=== PATIENT | male | born 1945 | race Caucasian/White ===

== ENCOUNTER 2021-02-04 12:53 | Emergency (ER) | payer MEDICARE, OTHER ==
[2021-02-04] MEDS ORDERED: Sodium Chloride 0.9% 10 ML Syringe FLUSH PRN (13:07)
--- NOTE | 2021-02-04 13:09 | EDM.PDOC ---
ED HPI GENERAL MEDICAL PROBLEM - General Chief Complaint: Cardiovascular Problem Stated Complaint: SHORT OF BREATH Time Seen by Provider: 02/04/21 12:55 Source of Information: Reports: Patient History Limitations: Reports: No Limitations - History of Present Illness INITIAL COMMENTS - FREE TEXT/NARRATIVE: 75 YO WM PRESENTS TO ER WITH COMPLAINTS OF SHORTNESS OF BREATH WHICH HAS BECOME MORE PROGRESSIVE OVER THE LAST 7-10 DAYS. PT REPORTS HE HAS HAD UPPER RESPIRATORY COUGH AND CONGESTION WITHOUT FEVER OVER THIS PERIOD OF TIME. PT DENIES LOWER EXTREMITY SWELLING, NO ORTHOPNEA BUT REPORTS DYSPNEA ON EXERTION. PT REPORTS HE WAS SEEN BY CARDIOLOGY AND HAD AN ABNORMAL STRESS TEST AND 2 DAYS AGO HAD A CARDIAC CATHETERIZATION AND STENT PLACED AT [facility]. PT REPORTS HE HAD A COVID TEST ON 01/30/2021 WHICH WAS NEGATIVE. PT DENIES CHEST PAIN, VOMITING, DIZZINESS OR DIAPHORESIS. PT DENIES FEVER/CHILLS. PT WITH PMH OF CAD, HTN, AND HYPERLIPIDEMIA. Duration: Week(s): (2), Getting Worse Location: Reports: Generalized Severity: Moderate Improves with: Reports: Rest Worsens with: Reports: Breathing, Movement Associated Symptoms: Reports: No Other Symptoms, Cough, Loss of Appetite, Nausea/Vomiting, Shortness of Breath. Denies: Chest Pain, Diaphoresis, Fever/Chills - Related Data Allergies Allergy/AdvReac Type Severity Reaction Status Date / Time No Known Allergies Allergy Verified 02/04/21 13:17 Home Meds: Home Meds Aspirin [Aspirin EC] 81 mg PO DAILY 02/04/21 [History] Azithromycin [Zithromax] 250 mg PO DAILY #3 tablet 02/04/21 [Rx] Clopidogrel [Plavix] 75 mg PO DAILY 02/04/21 [History] Fluticasone Propionate [Flonase] 1 spray NASBOTH BID 02/04/21 [History] Isosorbide Mononitrate [Imdur] 30 mg PO DAILY 02/04/21 [History] Nitroglycerin [Nitrostat] 0.4 mg SL ASDIRECTED 02/04/21 [History] Tamsulosin [Tamsulosin 24 Hr] 0.4 mg PO DAILY 02/04/21 [History] atorvaSTATin Calcium [Atorvastatin Calcium] 80 mg PO DAILY 02/04/21 [History] lisinopriL [Lisinopril] 20 mg PO DAILY 02/04/21 [History] predniSONE [Prednisone] 20 mg PO DAILY #9 tablet 02/04/21 [Rx] ED ROS GENERAL - Review of Systems Review Of Systems: See Below Constitutional: Reports: No Symptoms HEENT: Reports: No Symptoms Respiratory: Reports: Shortness of Breath Cardiovascular: Reports: Dyspnea on Exertion. Denies: Chest Pain, Blood Pressure Problem, Edema, Lightheadedness, Orthopnea Endocrine: Reports: No Symptoms GI/Abdominal: Reports: Nausea : Reports: No Symptoms Musculoskeletal: Reports: No Symptoms Skin: Reports: No Symptoms Neurological: Reports: No Symptoms Psychiatric: Reports: No Symptoms Hematologic/Lymphatic: Reports: No Symptoms Immunologic: Reports: No Symptoms ED EXAM, GENERAL - Physical Exam Exam: See Below Exam Limited By: No Limitations General Appearance: Alert, WD/WN, No Apparent Distress Nose: Clear Rhinorrhea Throat/Mouth: Normal Inspection, Normal Lips, Normal Teeth, Normal Gums, Normal Oropharynx, Normal Voice, No Airway Compromise Head: Atraumatic, Normocephalic Neck: Normal Inspection, Supple, Non-Tender, Full Range of Motion Respiratory/Chest: No Respiratory Distress, No Accessory Muscle Use, Chest Non- Tender, Rhonchi Cardiovascular: Normal Peripheral Pulses, Regular Rate, Rhythm, No Edema, No Gallop, No JVD, No Murmur, No Rub GI/Abdominal: Normal Bowel Sounds, Soft, Non-Tender, No Organomegaly, No Distention, No Abnormal Bruit, No Mass Back Exam: Normal Inspection, Full Range of Motion, NT Extremities: Normal Inspection, Normal Range of Motion, Non-Tender, Normal Capillary Refill, No Pedal Edema Neurological: Alert, Oriented, CN II-XII Intact, Normal Cognition, Normal Gait, Normal Reflexes, No Motor/Sensory Deficits Psychiatric: Normal Affect, Normal Mood Skin Exam: Warm, Dry, Intact, Normal Color, No Rash Lymphatic: No Adenopathy #1 Interpretation EKG Date: 02/04/21 Time: 13:01 Rhythm: NSR Rate (Beats/Min): 60 Reynolds: Normal P-Wave: Present QRS: RBBB ST-T: Normal QT: Normal Comparison: No Change (02/02/2021) Course - Vital Signs Last Recorded V/S: Last Vital Signs Temp 97.8 F 02/04/21 13:12 Pulse 56 L 02/04/21 13:45 Resp 21 H 02/04/21 13:45 BP 93/56 L 02/04/21 13:45 Pulse Ox 96 02/04/21 13:45 - Orders/Labs/Meds Orders: Active Orders 24 hr Category Date Time Status Cardiac Monitoring [RC] . DIRECTED Care 02/04/21 13:09 Ordered Peripheral IV Care [RC] . DIRECTED Care 02/04/21 13:08 Ordered RT Aerosol Therapy [RC] ASDIRECTED Care 02/04/21 14:08 Ordered Sodium Chloride 0.9% @ 999 MLS/HR (1000ml) Med 02/04/21 13:34 Ordered Sodium Chloride 0.9% [Normal Saline] 1,000 ml IV .BOLUS Sodium Chloride 0.9% [Saline Flush] Med 02/04/21 13:07 Ordered 10 ml FLUSH Q8HR PRN Peripheral IV Insertion Adult [OM.PC] Routine Oth 02/04/21 13:07 Ordered EKG 12 Lead [EK] Stat Ther 02/04/21 13:07 Ordered Medication Orders Sodium Chloride (Normal Saline) 1,000 mls @ 999 mls/hr IV .BOLUS ONE Stop: 02/04/21 14:34 Last Admin: 02/04/21 13:35 Dose: 999 mls/hr Documented by: LESVIA Sodium Chloride (Sodium Chloride 0.9% 10 Ml Syringe) 10 ml FLUSH Q8HR PRN PRN Reason: keep vein open Labs: Laboratory Tests 02/04/21 02/04/21 02/04/21 Range/Units 13:05 13:05 13:05 WBC 7.92 (5.00-10.00) 10^3/uL RBC 4.46 L (4.50-6.00) 10^6/uL Hgb 13.3 (13.0-17.0) g/dL Hct 40.3 (40.0-52.0) % MCV 90.4 (82.0-92.0) fL MCH 29.8 (27.0-31.0) pg MCHC 33.0 (32.0-36.0) g/dL RDW 13.1 (11.5-14.5) % Plt Count 200 (150-400) 10^3/uL MPV 10.3 (7.4-10.4) fL Immature Gran % (Auto) 0.5 (0.0-5.0) % Neut % (Auto) 64.1 (50.0-70.0) % Lymph % (Auto) 18.7 L (20.0-40.0) % Perkins % (Auto) 15.2 H (2.0-8.0) % Eos % (Auto) 1.0 (1.0-3.0) % Baso % (Auto) 0.5 (0.0-1.0) % Neut # (Auto) 5.08 (2.50-7.00) 10^3/uL Lymph # (Auto) 1.48 (1.00-4.00) 10^3/uL Perkins # (Auto) 1.20 H (0.10-0.80) 10^3/uL Eos # (Auto) 0.08 L (0.10-0.30) 10^3/uL Baso # (Auto) 0.04 (0.00-0.10) 10^3/uL Immature Gran # (Auto) 0.04 (0.00-0.50) 10^3/uL D-Dimer, Quantitative 139 (<400) ng/mL Sodium 138 (136-145) mmol/L Potassium 4.0 (3.5-5.1) mmol/L Chloride 102 (98-107) mmol/L Carbon Dioxide 25.1 (21.0-32.0) mmol/L Anion Gap 14.9 (5-15) mmol/L BUN 25 H (7-18) mg/dL Creatinine 1.11 (0.51-1.17) mg/dL Est Cr Clr Drug Dosing 54.77 mL/min Estimated GFR (MDRD) > 60 mL/min Glucose 120 (70-140) mg/dL Lactic Acid (0.4-2.0) mmol/L Calcium 8.1 L (8.7-10.3) mg/dL Total Bilirubin 0.5 (0.2-1.0) mg/dL AST 20 (15-37) U/L ALT 44 (14-63) U/L Alkaline Phosphatase 84 (46-116) U/L Creatine Kinase 72 (26-276) U/L CK-MB (CK-2) 1.07 (0.00-3.60) ng/mL Troponin I High Sens 34.400 (0-76.000) pg/mL B-Natriuretic Peptide 33 (0-100) pg/mL Total Protein 6.4 (6.4-8.2) g/dL Albumin 3.49 (3.40-5.00) g/dL 02/04/21 Range/Units 13:05 WBC (5.00-10.00) 10^3/uL RBC (4.50-6.00) 10^6/uL Hgb (13.0-17.0) g/dL Hct (40.0-52.0) % MCV (82.0-92.0) fL MCH (27.0-31.0) pg MCHC (32.0-36.0) g/dL RDW (11.5-14.5) % Plt Count (150-400) 10^3/uL MPV (7.4-10.4) fL Immature Gran % (Auto) (0.0-5.0) % Neut % (Auto) (50.0-70.0) % Lymph % (Auto) (20.0-40.0) % Perkins % (Auto) (2.0-8.0) % Eos % (Auto) (1.0-3.0) % Baso % (Auto) (0.0-1.0) % Neut # (Auto) (2.50-7.00) 10^3/uL Lymph # (Auto) (1.00-4.00) 10^3/uL Perkins # (Auto) (0.10-0.80) 10^3/uL Eos # (Auto) (0.10-0.30) 10^3/uL Baso # (Auto) (0.00-0.10) 10^3/uL Immature Gran # (Auto) (0.00-0.50) 10^3/uL D-Dimer, Quantitative (<400) ng/mL Sodium (136-145) mmol/L Potassium (3.5-5.1) mmol/L Chloride (98-107) mmol/L Carbon Dioxide (21.0-32.0) mmol/L Anion Gap (5-15) mmol/L BUN (7-18) mg/dL Creatinine (0.51-1.17) mg/dL Est Cr Clr Drug Dosing mL/min Estimated GFR (MDRD) mL/min Glucose (70-140) mg/dL Lactic Acid 1.3 (0.4-2.0) mmol/L Calcium (8.7-10.3) mg/dL Total Bilirubin (0.2-1.0) mg/dL AST (15-37) U/L ALT (14-63) U/L Alkaline Phosphatase (46-116) U/L Creatine Kinase (26-276) U/L CK-MB (CK-2) (0.00-3.60) ng/mL Troponin I High Sens (0-76.000) pg/mL B-Natriuretic Peptide (0-100) pg/mL Total Protein (6.4-8.2) g/dL Albumin (3.40-5.00) g/dL Meds: Medications Generic Name Dose Route Start Last Admin Trade Name Freq PRN Reason Stop Dose Admin Sodium Chloride 1,000 mls @ 999 mls/hr 02/04/21 13:34 02/04/21 13:35 Normal Saline IV 02/04/21 14:34 999 mls/hr .BOLUS ONE Administration Sodium Chloride 10 ml 02/04/21 13:07 Sodium Chloride 0.9% 10 Ml Syringe FLUSH Q8HR PRN keep vein open Discontinued Medications Generic Name Dose Route Start Last Admin Trade Name Freq PRN Reason Stop Dose Admin Albuterol/Ipratropium 3 ml 02/04/21 14:08 Albuterol/Ipratropium 3.0-0.5 Mg/3 Ml Neb Soln NEB 02/04/21 14:09 ONETIME ONE - Radiology Interpretation Free Text/Narrative:: CXR-NAD Departure - Departure Time of Disposition: 14:22 Disposition: Home, Self-Care 01 Condition: Good Clinical Impression: Acute bronchitis Qualifiers: Bronchitis organism: unspecified organism Qualified Code(s): J20.9 - Acute bronchitis, unspecified Prescriptions: predniSONE [Prednisone] 20 mg PO DAILY #9 tablet Azithromycin [Zithromax] 250 mg PO DAILY #3 tablet Instructions: Acute Bronchitis, Adult, [id number] Referrals: Rebeca Chan, [employer]OR [Primary Care Provider] - Forms: ED Department Discharge Additional Instructions: 1. DISCHARGE HOME- DISCUSSED WITH JACEY SOLIZ- AGREED WITH DISCHARGE AND WILL FOLLOW UP WITH PATIENT EARLY NEXT WEEK FOR RE-EVALUATION 2. Z-COMPA 3. PREDNISONE 60MG DAILY X 5 DAYS 4. ALBUTEROL HFA 2 PUFFS EVERY 4 HOURS AND NEEDED FOR COUGH/SHORTNESS OF B REATH 5. MUCINEX TO HELP WITH CONGESTION DIRECTED 6. AFRIN NS 2 SPRAYS EACH NOSTRIL TWICE/DAY X 3 DAYS ONLY 7. RETURN TO ER FOR WORSENING SYMPTOMS Sepsis Event Note (ED) - Focused Exam Vital Signs: Vital Signs Temp Pulse Resp BP Pulse Ox 02/04/21 13:45 56 L 21 H 93/56 L 96 02/04/21 13:30 58 L 22 H 99/59 L 94 L 02/04/21 13:15 61 22 H 105/48 L 94 L 02/04/21 13:12 97.8 F 60 20 112/58 L 92 L - My Orders Last 24 Hours: My Active Orders 02/04/21 13:07 Sodium Chloride 0.9% [Saline Flush] 10 ml FLUSH Q8HR PRN Peripheral IV Insertion Adult [OM.PC] Routine EKG 12 Lead [EK] Stat 02/04/21 13:08 Peripheral IV Care [RC] . DIRECTED 02/04/21 13:09 Cardiac Monitoring [RC] . DIRECTED 02/04/21 13:34 Sodium Chloride 0.9% @ 999 MLS/HR (1000ml) Sodium Chloride 0.9% [Normal Saline] 1,000 ml IV .BOLUS 02/04/21 14:08 RT Aerosol Therapy [RC] ASDIRECTED - Assessment/Plan Last 24 Hours: My Active Orders 02/04/21 13:07 Sodium Chloride 0.9% [Saline Flush] 10 ml FLUSH Q8HR PRN Peripheral IV Insertion Adult [OM.PC] Routine EKG 12 Lead [EK] Stat 02/04/21 13:08 Peripheral IV Care [RC] . DIRECTED 02/04/21 13:09 Cardiac Monitoring [RC] . DIRECTED 02/04/21 13:34 Sodium Chloride 0.9% @ 999 MLS/HR (1000ml) Sodium Chloride 0.9% [Normal Saline] 1,000 ml IV .BOLUS 02/04/21 14:08 RT Aerosol Therapy [RC] ASDIRECTED Assessment:: 1. ACUTE BRONCHITIS Plan: 1. DISCHARGE HOME- DISCUSSED WITH JACEY SOLIZ- AGREED WITH DISCHARGE AND WILL FOLLOW UP WITH PATIENT EARLY NEXT WEEK FOR RE-EVALUATION 2. Z-COMPA 3. PREDNISONE 60MG DAILY X 5 DAYS 4. ALBUTEROL HFA 2 PUFFS EVERY 4 HOURS AND NEEDED FOR COUGH/SHORTNESS OF BREATH 5. MUCINEX TO HELP WITH CONGESTION DIRECTED 6. AFRIN NS 2 SPRAYS EACH NOSTRIL TWICE/DAY X 3 DAYS ONLY 7. RETURN TO ER FOR WORSENING SYMPTOMS
[2021-02-04] MEDS ORDERED: Sodium Chloride 0.9% 1,000 ML IV ONE (13:34)
--- NOTE | 2021-02-04 13:43 | CR ---
[id number] RAD/RAD Chest PA And Lateral EXAM: RAD Chest PA And Lateral INDICATION: SHORTNESS OF BREATH. COMPARISON: CT from 2015. DISCUSSION/IMPRESSION: Cardiomediastinal silhouette is normal in size and contour. Scarring in the left lung base. No pneumonia. No pleural effusion or pneumothorax. Chronic healed right-sided rib fractures. Kirill Thompson MD 02/04/21 [id number] Thank you for allowing us to participate in the care of your patient.
[2021-02-04 13:44] LABS: ANION GAP 14.9 mmol/L (5-15); CHLORIDE,CL 102 mmol/L (98-107); SODIUM,NA 138 mmol/L (136-145)
[2021-02-04] MEDS ORDERED: Albuterol/Ipratropium 3.0-0.5 MG/3 ML Neb Soln NEB ONE (14:08)
[2021-02-04] MEDS ORDERED: Albuterol 8 GM Inhaler INH PRN (14:18)
[2021-02-04] MEDS ORDERED: predniSONE 20 MG Tab PO ONE (14:18)
[2021-02-04] MEDS ORDERED: Azithromycin 250 MG Tab PO ONE (14:18)
[2021-02-04] MEDS ORDERED: Albuterol 8 GM Inhaler INH ONE (14:53)
== END 2021-02-04 15:05 | disposition home or self-care (01) ==
LOC: KA.ED 12:53
DX: J20.9 Acute bronchitis, unspecified (principal); Z79.82 Long term (current) use of aspirin; Z79.02 Long term (current) use of antithrombotics/antiplatelets
CPT/HCPCS: 36415; 71046; 80053; 82550; 82553; 83605; 83880; 84484; 85025; 85379; 93005; 94640; 99283; 99285-25; A9270-GY; J7030; J7512; J7620-GY

== ENCOUNTER 2023-03-27 19:56 | Inpatient (IN) | payer MEDICARE, OTHER ==
[2023-03-27] MEDS ORDERED: Sodium Chloride 0.9% 10 ML Syringe FLUSH PRN (20:11)
[2023-03-27] MEDS ORDERED: Sodium Chloride 0.9% 500 ML IV SCH (20:15)
[2023-03-27 20:31] LABS: BASOPHILS ABSOLUTE AUTO 0.03 10^3/uL (0.00-0.10); BASOPHILS PERCENT AUTO 0.2 % (0.0-1.0); EOSINOPHILS ABSOLUTE AUTO 0.04 10^3/uL (0.10-0.30); EOSINOPHILS PERCENT AUTO 0.2 % (1.0-3.0); HEMATOCRIT 40.1 % (40.0-52.0); HEMOGLOBIN 13.4 g/dL (13.0-17.0); IMMATURE GRAN ABSOLUTE AUTO 0.14 10^3/uL (0.00-0.50); IMMATURE GRAN PERCENT AUTO 0.9 % (0.0-5.0); LYMPHOCYTES ABSOLUTE AUTO 0.92 10^3/uL (1.00-4.00); LYMPHOCYTES PERCENT AUTO 5.7 % (20.0-40.0); MEAN CORPUSCULAR HEMOGLOBIN 30.2 pg (27.0-31.0); MEAN CORPUSCULAR HGB CONC 33.4 g/dL (32.0-36.0); MEAN CORPUSCULAR VOLUME 90.5 fL (82.0-92.0); MEAN PLATELET VOLUME 9.4 fL (7.4-10.4); MONOCYTES ABSOLUTE AUTO 0.84 10^3/uL (0.10-0.80); MONOCYTES PERCENT AUTO 5.2 % (2.0-8.0); NEUTROPHILS ABSOLUTE AUTO 14.19 10^3/uL (2.50-7.00); NEUTROPHILS PERCENT AUTO 87.8 % (50.0-70.0); PLATELET COUNT,PLT 259 10^3/uL (150-400); RED BLOOD CELL COUNT 4.43 10^6/uL (4.50-6.00); WHITE BLOOD CELL COUNT,WBC 16.16 10^3/uL (5.00-10.00)
[2023-03-27] MEDS ORDERED: Ondansetron 4 MG/2 ML SDV IVPUSH ONE (20:33)
[2023-03-27] MEDS ORDERED: cefTRIAXone 1 GM Vial IVPUSH ONE (20:39)
[2023-03-27 20:47] LABS: ALANINE AMINOTRANSFERASE,ALT 31 U/L (14-63); ALBUMIN 3.07 g/dL (3.40-5.00); ALKALINE PHOSPHATASE 73 U/L (46-116); ANION GAP 17.5 mmol/L (5-15); ASPARTATE AMNIOTRANSFERASE,AST 18 U/L (15-37); BILIRUBIN TOTAL 0.7 mg/dL (0.2-1.0); BLOOD UREA NITROGEN,BUN 22 mg/dL (7-18); CALCIUM 8.5 mg/dL (8.7-10.3); CARBON DIOXIDE,CO2 22.9 mmol/L (21.0-32.0); CHLORIDE,CL 100 mmol/L (98-107); CREATININE 0.99 mg/dL (0.51-1.17); GLUCOSE RANDOM 179 mg/dL (70-140); POTASSIUM,K 4.4 mmol/L (3.5-5.1); PROTEIN TOTAL,TP 6.3 g/dL (6.4-8.2); SODIUM,NA 136 mmol/L (136-145)
[2023-03-27 20:49] LABS: APPEARANCE,URINE TURBID (CLEAR); BILIRUBIN,URINE LARGE (NEGATIVE); COLOR,URINE RED (YELLOW); GLUCOSE,URINE 100 mg/dL (NEGATIVE); KETONES,URINE 40 mg/dL (NEGATIVE); LEUKOCYTE ESTERASE,URINE LARGE (NEGATIVE); NITRITE,URINE POSITIVE (NEGATIVE); OCCULT BLOOD,URINE LARGE (NEGATIVE); PH,URINE 8.5 (5.0-9.0); PROTEIN,URINE >=300 mg/dL (NEGATIVE)
[2023-03-27 20:50] LABS: BACTERIA,URINE FEW /HPF (NONE TO FEW); EPITHELIAL CELLS,URINE RARE /LPF; RBC,URINE >100 /HPF (0-5)
[2023-03-27 20:50] LABS: ESTIMATED GFR 78 mL/min (>=60)
[2023-03-27] MEDS: Water For Injection, Sterile 20 ML ONE ×2 (21:00→22:49)
[2023-03-27 21:20] LABS: INFLUENZA A NAA NEGATIVE (NEGATIVE); INFLUENZA B NAA NEGATIVE (NEGATIVE)
[2023-03-27 21:21] LABS: CORONAVIRUS COVID-19 NAA NEGATIVE (NEGATIVE)
[2023-03-27] MEDS ORDERED: Acetaminophen 325 MG Tab PO PRN (22:42)
[2023-03-27] MEDS ORDERED: Ondansetron 4 MG/2 ML SDV IV PRN (22:42)
[2023-03-27] MEDS ORDERED: Acetaminophen/HYDROcodone 325-5 MG Tab PO PRN (22:51)
[2023-03-28] MEDS: Omeprazole 20 MG Cap.CR PO SCH ×2 (06:25→06:32)
[2023-03-28 07:03] LABS: BASOPHILS ABSOLUTE AUTO 0.03 10^3/uL (0.00-0.10); BASOPHILS PERCENT AUTO 0.2 % (0.0-1.0); EOSINOPHILS ABSOLUTE AUTO 0.13 10^3/uL (0.10-0.30); EOSINOPHILS PERCENT AUTO 0.8 % (1.0-3.0); HEMATOCRIT 36.8 % (40.0-52.0); HEMOGLOBIN 11.9 g/dL (13.0-17.0); IMMATURE GRAN ABSOLUTE AUTO 0.15 10^3/uL (0.00-0.50); IMMATURE GRAN PERCENT AUTO 0.9 % (0.0-5.0); LYMPHOCYTES ABSOLUTE AUTO 1.91 10^3/uL (1.00-4.00); LYMPHOCYTES PERCENT AUTO 11.2 % (20.0-40.0); MEAN CORPUSCULAR HEMOGLOBIN 29.7 pg (27.0-31.0); MEAN CORPUSCULAR HGB CONC 32.3 g/dL (32.0-36.0); MEAN CORPUSCULAR VOLUME 91.8 fL (82.0-92.0); MEAN PLATELET VOLUME 9.2 fL (7.4-10.4); MONOCYTES ABSOLUTE AUTO 1.17 10^3/uL (0.10-0.80); MONOCYTES PERCENT AUTO 6.9 % (2.0-8.0); NEUTROPHILS ABSOLUTE AUTO 13.61 10^3/uL (2.50-7.00); PLATELET COUNT,PLT 245 10^3/uL (150-400); RED BLOOD CELL COUNT 4.01 10^6/uL (4.50-6.00)
[2023-03-28 07:19] LABS: ANION GAP 15.8 mmol/L (5-15); CALCIUM 8.3 mg/dL (8.7-10.3); CARBON DIOXIDE,CO2 23.4 mmol/L (21.0-32.0); CREATININE 0.96 mg/dL (0.51-1.17); EST CRCL DRUG DOSING (CG) 65.48 mL/min; POTASSIUM,K 4.2 mmol/L (3.5-5.1)
[2023-03-28] MEDS: atorvaSTATin 40 MG Tab PO SCH (08:19)
[2023-03-28] MEDS: Aspirin 325 MG Tab.EC PO SCH (08:19)
[2023-03-28] MEDS: Tamsulosin 0.4 MG Cap.ER PO SCH (08:20)
[2023-03-28] MEDS: Polyethylene Glycol 3350 Powder 17 GM Packet PO SCH ×2 (08:20→20:01)
[2023-03-28] MEDS: Enoxaparin 40 MG/0.4 ML Syringe SUBCUT SCH (08:20)
[2023-03-28] MEDS ORDERED: cefTRIAXone 2 GM Vial IVPUSH SCH (19:00)
[2023-03-28] MEDS ORDERED: cefTRIAXone 1 GM Vial IVPUSH SCH (20:00)
[2023-03-28] MEDS: Metoprolol Succinate 25 MG Tab.ER PO SCH (20:01)
[2023-03-29] MEDS: Omeprazole 20 MG Cap.CR PO SCH ×2 (06:19→06:32)
[2023-03-29 07:13] LABS: HEMATOCRIT 35.1 % (40.0-52.0); HEMOGLOBIN 11.5 g/dL (13.0-17.0); MEAN CORPUSCULAR HEMOGLOBIN 29.9 pg (27.0-31.0); MEAN CORPUSCULAR HGB CONC 32.8 g/dL (32.0-36.0); MEAN CORPUSCULAR VOLUME 91.2 fL (82.0-92.0); MEAN PLATELET VOLUME 9.3 fL (7.4-10.4); PLATELET COUNT,PLT 248 10^3/uL (150-400); RED BLOOD CELL COUNT 3.85 10^6/uL (4.50-6.00); RED CELL DISTRIBUTION WIDTH 12.9 % (11.5-14.5); WHITE BLOOD CELL COUNT,WBC 11.75 10^3/uL (5.00-10.00)
[2023-03-29] MEDS: Aspirin 325 MG Tab.EC PO SCH (08:08)
[2023-03-29] MEDS: Enoxaparin 40 MG/0.4 ML Syringe SUBCUT SCH (08:08)
[2023-03-29] MEDS: atorvaSTATin 40 MG Tab PO SCH (08:08)
[2023-03-29] MEDS: Tamsulosin 0.4 MG Cap.ER PO SCH (08:08)
[2023-03-29] MEDS: Polyethylene Glycol 3350 Powder 17 GM Packet PO SCH ×2 (08:09→21:14)
[2023-03-29] MEDS: Meropenem 1 GM in Sodium Chloride 0.9% 100 ML IV SCH ×2 (12:17→20:00)
[2023-03-29] MEDS ORDERED: Sodium Chloride 0.9% 100 ML IV SCH (20:00)
[2023-03-29] MEDS: Metoprolol Succinate 25 MG Tab.ER PO SCH (21:05)
[2023-03-30] MEDS: Meropenem 1 GM in Sodium Chloride 0.9% 100 ML IV SCH (02:53)
[2023-03-30] MEDS ORDERED: Nitroglycerin 0.4 MG Tab.SL SL PRN (03:45)
[2023-03-30] MEDS: Omeprazole 20 MG Cap.CR PO SCH (06:29)
[2023-03-30 06:30] VITALS: PULSE 73
[2023-03-30 07:31] LABS: ALBUMIN 2.58 g/dL (3.40-5.00); ANION GAP 13.4 mmol/L (5-15); BILIRUBIN TOTAL 0.5 mg/dL (0.2-1.0); CALCIUM 8.2 mg/dL (8.7-10.3); CARBON DIOXIDE,CO2 24.7 mmol/L (21.0-32.0); CREATININE 0.98 mg/dL (0.51-1.17); EST CRCL DRUG DOSING (CG) 64.14 mL/min; POTASSIUM,K 4.1 mmol/L (3.5-5.1); PROTEIN TOTAL,TP 5.8 g/dL (6.4-8.2)
[2023-03-30] MEDS: atorvaSTATin 40 MG Tab PO SCH (08:25)
[2023-03-30] MEDS: Enoxaparin 40 MG/0.4 ML Syringe SUBCUT SCH (08:26)
[2023-03-30] MEDS: Aspirin 325 MG Tab.EC PO SCH (08:26)
[2023-03-30] MEDS: Polyethylene Glycol 3350 Powder 17 GM Packet PO SCH (08:26)
[2023-03-30] MEDS: Tamsulosin 0.4 MG Cap.ER PO SCH (08:26)
[2023-03-30 10:44] VITALS: BP 135/75
[2023-03-30] MEDS ORDERED: Levofloxacin 500 MG Tab PO SCH (12:00)
[2023-03-30] MEDS ORDERED: Levofloxacin 500 MG Tab PO ONE (12:38)
== END 2023-03-30 13:14 | disposition home or self-care (01) | DRG 700 ==
LOC: KA.ED 19:56 → KA.MS 21:17 → UNDOADMIN 21:38 → KA.MS 21:38
PROVIDERS: ADMIT Internal Medicine; ATTEND Internal Medicine
DX: T83.511A Infection and inflammatory reaction due to indwelling urethral catheter, initial encounter (principal); N39.0 Urinary tract infection, site not specified; I25.10 Atherosclerotic heart disease of native coronary artery without angina pectoris; I10 Essential (primary) hypertension; R33.9 Retention of urine, unspecified; Y84.6 Urinary catheterization as the cause of abnormal reaction of the patient, or of later complication, without mention of misadventure at the time of the procedure; N40.0 Benign prostatic hyperplasia without lower urinary tract symptoms; Z79.02 Long term (current) use of antithrombotics/antiplatelets; Z20.822 Contact with and (suspected) exposure to COVID-19; N40.1 Benign prostatic hyperplasia with lower urinary tract symptoms; E78.00 Pure hypercholesterolemia, unspecified; Z95.5 Presence of coronary angioplasty implant and graft; Z79.82 Long term (current) use of aspirin; Z79.899 Other long term (current) drug therapy; Z79.01 Long term (current) use of anticoagulants; Z95.1 Presence of aortocoronary bypass graft; Z98.890 Other specified postprocedural states
CPT/HCPCS: 0240U; 36415; 51798; 71045; 80048; 80053; 81001; 82947; 83605; 84484; 85025; 85027; 87040; 87086; 87088; 87186; 93005; 96374; 96375; 99285-25; A9270-GY; J0696; J1650; J2185; J2405; J3490; J7040; Q3014

== ENCOUNTER 2024-07-07 06:58 | Day surgery (SDC) | payer MEDICARE, OTHER ==
[2024-07-07] MEDS ORDERED: Sodium Chloride 0.9% 10 ML Syringe FLUSH PRN (07:00)
[2024-07-07] MEDS: Lactated Ringers 1,000 ML IV SCH (07:36)
[2024-07-07] MEDS ORDERED: Propofol 200 MG/20 ML SDV ONE (07:57)
[2024-07-07] MEDS ORDERED: Midazolam 1 MG/ML 2 ML SDV ONE (07:57)
== END 2024-07-07 10:28 | disposition home or self-care (01) ==
LOC: KA.SDS 06:58
PROVIDERS: ATTEND Family Medicine
DX: Z12.11 Encounter for screening for malignant neoplasm of colon (principal); K64.8 Other hemorrhoids; I10 Essential (primary) hypertension; E78.2 Mixed hyperlipidemia; I25.10 Atherosclerotic heart disease of native coronary artery without angina pectoris; Z95.1 Presence of aortocoronary bypass graft; Z85.038 Personal history of other malignant neoplasm of large intestine
CPT/HCPCS: J2250; J2704; J7120

== ENCOUNTER 2024-07-27 10:27 | Emergency (ER) | payer MEDICARE, OTHER ==
[2024-07-27] MEDS ORDERED: Ketorolac 30 MG/ML SDV IVPUSH ONE (10:44)
[2024-07-27] MEDS: HYDROmorphone 1 MG/ML Syringe IM ONE (11:51)
[2024-07-27] MEDS: Ketorolac 30 MG/ML SDV IM ONE (11:51)
[2024-07-27] MEDS: Cyclobenzaprine 10 MG Tab PO ONE (11:52)
== END 2024-07-27 13:30 | disposition home or self-care (01) ==
LOC: KA.ED 10:27
DX: M54.16 Radiculopathy, lumbar region (principal); I10 Essential (primary) hypertension; I25.810 Atherosclerosis of coronary artery bypass graft(s) without angina pectoris; E78.00 Pure hypercholesterolemia, unspecified; Z88.8 Allergy status to other drugs, medicaments and biological substances; Z79.82 Long term (current) use of aspirin; Z79.899 Other long term (current) drug therapy; Z86.16 Personal history of COVID-19
CPT/HCPCS: 72100; 96372; 99283; 99284; A9270-GY; J1171; J1885